=== PATIENT | male | born 1980 | race Caucasian/White ===

== ENCOUNTER 2024-02-06 15:50 | Emergency (ER) | payer OTHER ==
[2024-02-06 16:04] VITALS: BP 131/93; PULSE 93; RESP 18; TEMP 98.4; BMI 26.8
== END 2024-02-06 18:00 | disposition home or self-care (01) ==
LOC: JER 15:50
DX: I82.402 Acute embolism and thrombosis of unspecified deep veins of left lower extremity (principal)
CPT/HCPCS: 99283-25